=== PATIENT | female | born 1965 | race Caucasian/White ===

== ENCOUNTER 2025-01-08 10:01 | Outpatient (CLI) | payer OTHER, SELFPAY ==
--- NOTE | 2025-01-08 10:20 | MM_ITS ---
WS: [id number] BILATERAL 3D TOMOSYNTHESIS DIGITAL SCREENING MAMMOGRAPHY WITH CAD CLINICAL INFORMATION: SCREENING HISTORY: Screening mammogram. No current complaints. COMPARISON: None. TECHNIQUE: Bilateral CC and MLO views. FINDINGS: The breasts are composed of heterogeneous fibroglandular density tissue, which can limit the detection of small underlying mass lesions. No suspicious mass, asymmetry, calcifications, or architectural distortion. No evidence of malignancy. Lucent centered calcification RIGHT breast. Vascular calcifications. A few incidental punctate calcifications. MM/MM [facility] tomosynthesis [id number] IMPRESSION: DENSITY: The breasts are heterogeneously dense, which may obscure small masses. BI-RADS: 2 - Benign FOLLOW UP: 1 Year Follow-up Recommend return to annual screening mammography.
== END 2025-01-08 10:02 | disposition home or self-care (01) ==
PROVIDERS: PCP Nurse Practitioner; Visit Provider Nurse Practitioner
DX: Z12.31 Encounter for screening mammogram for malignant neoplasm of breast (principal); R92.333 Mammographic heterogeneous density, bilateral breasts; R92.1 Mammographic calcification found on diagnostic imaging of breast
CPT/HCPCS: 77063; 77067

== ENCOUNTER 2025-07-04 10:13 | Outpatient (CLI) | payer OTHER, MEDICAID, SELFPAY ==
--- NOTE | 2025-07-04 10:24 | USCV_ITS ---
Annia Bridges Age: 60 Gender: F : 1965 Exam Date: 07/04/2025 10:44 Ordering Phys: Jaqueline LozanoP Technologist: Ex[place] [facility] [place]ication: hx of cad Risk Factors: Previous Vascular Surgery: Right Brachial BP: / Left Brachial BP: / Right Left Velocity (cm/s) Spectral Plaque Velocity (cm/s) Spectral Plaque Syst/Diast Broadening Syst/Diast Broadening 53.00/ 14.10 Prox CCA 77.40 / 19.70 56.90/ 16.70 Mid CCA 59.50 / 23.70 54.30/ 15.40 Distal CCA 71.40 / 23.70 None Hetro 105.70/38.10 Prox ICA 65.40 / 20.10 Marked Hetro 72.80/ 26.10 Mid ICA 68.30 / 19.20 Marked Hetro 82.80/ 18.80 Distal ICA 157.60/ 49.20 Marked Hetro 102.00 ECA 47.60 1.90 ICA/CCA 2.20 Antegrade Vertebral Antegrade 30.10/ 11.40 cm/s 21.00/ 9.00 cm/s Bi Subclavian Bi 66.50 125.2 0 FINDINGS Comparison: none available. Mild elevation of velocity left distal ICA is probably due to tortuosity. No significant elevation of systolic or diastolic velocities. Mild plaque, bilateral. CONCLUSIONS Bilateral ICA stenosis less than 50%. Mild carotid atherosclerosis. Dr. Torrie Romano DO (Electronically Signed) Final Date: 04 July 2025 11:29 S
== END 2025-07-04 10:14 | disposition home or self-care (01) ==
LOC: RAD 10:16
PROVIDERS: PCP Nurse Practitioner; Visit Provider Nurse Practitioner
DX: I69.354 Hemiplegia and hemiparesis following cerebral infarction affecting left non-dominant side (principal); I65.23 Occlusion and stenosis of bilateral carotid arteries
CPT/HCPCS: 93880

== ENCOUNTER 2025-10-11 10:07 | Outpatient (CLI) | payer OTHER, MEDICAID, SELFPAY ==
--- NOTE | 2025-10-11 10:23 | USR_ITS ---
PROCEDURE INFORMATION: Exam: US Retroperitoneal, Complete, Kidneys, Aorta, IVC. Exam date and time: 10/11/2025 10:27 AM Age: 60 years old Clinical indication: Abdominal pain; Flank; Other: Not specified; Additional info: Flank pain TECHNIQUE: Imaging protocol: Real-time ultrasound of the retroperitoneum with image documentation. Complete exam focused on the bilateral kidneys, aorta, and inferior vena cava. COMPARISON: No relevant prior studies available. FINDINGS: Right kidney: Right kidney measures 9.4 x 4.7 x 5.2 centimeters. No hydronephrosis or obstructing renal stones. Left kidney: No stones. No hydronephrosis. Measuring 9.4 x 4.7 x 5.2 centimeters. Aorta: Normal. No aneurysm. Common iliac arteries: Normal. Inferior vena cava: Normal. Urinary bladder: Bladder is well distended. Bilateral ureteral jets not clearly observed. US/US renal BI* [id number] IMPRESSION: No hydronephrosis.
== END 2025-10-11 10:08 | disposition home or self-care (01) ==
LOC: RAD 10:08
PROVIDERS: PCP Nurse Practitioner; Visit Provider Nurse Practitioner Family
DX: R10.A1 Flank pain, right side (principal); N32.89 Other specified disorders of bladder
CPT/HCPCS: 76770